=== PATIENT | male | born 1970 | race Caucasian/White ===

== ENCOUNTER 2022-10-24 14:03 | Outpatient (CLI) | payer OTHER, SELFPAY ==
--- NOTE | ~2022-10-24 | XR_ITS ---
EXAM: XR knee LT min 4V DATE: 10/24/2022 15:17 HISTORY: M17.2 - Bilateral post-traumatic osteoarthritis of knee . COMPARISON: X-ray right knee, same date. FINDINGS: Normal mineralization. No fracture or dislocation. No lytic or blastic lesion. Moderate me dial and mild lateral joint space narrowing. Tricompartmental osteophytosis, moderate in the medial a nd patella femoral compartments. Quadriceps and patellar enthesopathy. No erosion or periosteal roman e. Soft tissues within normal limits. IMPRESSION: Moderate left knee osteoarthritis. Reviewed, dictated and finalized at location K.
--- NOTE | ~2022-10-24 | US_ITS ---
US art doppler w press LE BI INDICATION: Lower extremity pain. TECHNIQUE: Segmental pressures and plethysmographic and Doppler waveforms of the brachial and lower e xtremity arteries were obtained. COMPARISON: None. FINDINGS: Right and left brachial artery pressures of 134 mm Hg and 144 mm Hg, respectively, are concordant (no rmal difference <= 30 mmHg). The right ankle-brachial index (TAM) is 1.07 (normal >= 0.9-1.0). The right great toe-brachial index (TBI) is 0.88 (normal >= 0.60). The left TAM is 1.17. The left TBI is 0.74. IMPRESSION: 1. Normal bilateral ankle and toe brachial indices. Reviewed, dictated and finalized at location []
--- NOTE | ~2022-10-24 | XR_ITS ---
EXAMINATION: XR chest 2V 10/24/2022 15:17 INDICATION: Wheezing and dyspnea PROCEDURE: 2 view chest COMPARISON: No prior studies for comparison. FINDINGS: The lungs are clear. The cardiomediastinal silhouette is within normal limits. There are no pleural effusions. There is no pneumothorax suspected. IMPRESSION: 1: NO ACUTE CARDIOPULMONARY DISEASE. Reviewed, dictated and finalized at location L.
--- NOTE | ~2022-10-24 | XR_ITS ---
XR lumbar spine 6V w bending 10/24/2022 15:18 Indication: Low back pain Procedure: 7 views lumbar spine including flexion/extension views. Comparison: No prior studies for comparison. Findings: Vertebral body heights are maintained. No fracture or traumatic malalignment. There is disc narrowing at L5-S1. There is grade 1 degenerative spondylolisthesis at L4-5. No significant alterati on of alignment with flexion/extension. Pedicles intact. Sacral foramen are symmetric. There is mild facet hypertrophy at L4-5 and L5-S1. No acute fracture or traumatic malalignment. Impression: 1: Mild lumbar spondylosis with grade 1 degenerative spondylolisthesis at L4-5. Reviewed, dictated and finalized at location [] Impression: 1: Mild lumbar spondylosis with grade 1 degenerative spondylolisthesis at L4-5.
--- NOTE | ~2022-10-24 | XR_ITS ---
XR knee RT min 4V 10/24/2022 15:18 INDICATION: Right knee pain PROCEDURE: 4 views right knee COMPARISON: No prior studies for comparison. FINDINGS: Fracture, dislocation or subluxation is not identified. There is mild patellofemoral compar tment osteoarthritis. No significant joint effusion. The soft tissues appear within normal limits. N o foreign bodies are identified. IMPRESSION: 1: Mild patellofemoral compartment osteoarthritis. Reviewed, dictated and finalized at location L.
== END 2022-10-24 14:04 | disposition home or self-care (01) ==
LOC: ANHIMG 14:05
PROVIDERS: PCP Family Medicine; Visit Provider Family Medicine
DX: M54.50 Low back pain, unspecified (principal); G89.29 Other chronic pain; M17.2 Bilateral post-traumatic osteoarthritis of knee; R06.2 Wheezing; R09.89 Other specified symptoms and signs involving the circulatory and respiratory systems; M43.06 Spondylolysis, lumbar region; M17.0 Bilateral primary osteoarthritis of knee
CPT/HCPCS: 71046; 72114; 73564; 93923